=== PATIENT | male | born 1970 | race Caucasian/White ===

== ENCOUNTER 2020-06-17 07:54 | Outpatient (REF) | payer MEDICARE, MEDICAID, SELFPAY ==
[2020-06-17 08:57] LABS: MANUAL DIFF FLAG NO
[2020-06-17 09:00] LABS: Basophils Absolute Auto 0.1 X10*3/uL (0.0-0.2); Basophils Percent Auto 0.7 % (0-2); Eosinophils Absolute Auto 0.1 X10*3/uL (0.0-0.4); Eosinophils Percent Auto 1.4 % (0-4); Hematocrit 45.6 % (42-52); Imm Gran Abs Auto 0.03 X10*3/uL (0.00-0.03); Imm Gran Pct Auto 0.4 % (0.0-0.4); Lymphocytes Percent Auto 28.3 % (20-40); Mean Corpuscular HGB Conc 32.9 g/dl (31.0-36.0); Mean Corpuscular Hemoglobin 27.6 pg (27.0-33.0); Mean Platelet Volume 9.9 fL (9.4-12.4); Monocytes Absolute Auto 0.7 X10*3/uL (0.1-1.2); Monocytes Percent Auto 9.2 % (2-11); Neutrophils Absolute Auto 4.3 X10*3/uL (2.0-8.3); Platelet Count 295 X10*3/uL (160-400); Red Blood Count 5.43 X10*6/uL (4.60-5.80); Red Cell Distribution Width 12.8 % (11.0-16.0); White Blood Count 7.1 X10*3/uL (4.8-10.8)
[2020-06-17 09:36] LABS: Anion Gap 13 (12-20); Blood Urea Nitrogen 18 mg/dL (9-16); Calcium 9.4 mg/dL (8.4-10.2); Carbon Dioxide 28 mmol/L (22-29); Chloride 101 mmol/L (96-108); Estimated Glomerular Filt Rate > 60; Glucose Random 95 mg/dL (60-115); Potassium 4.6 mmol/l (3.3-5.1); Sodium 137 mmol/L (135-145)
== END 2020-06-17 07:55 | disposition home or self-care (01) ==
LOC: HO.LAB 07:54
PROVIDERS: Visit Provider Internal Medicine
DX: R51.9 Headache, unspecified (principal)
CPT/HCPCS: 36415; 80048; 85025

== ENCOUNTER 2020-07-18 15:18 | Outpatient (REF) | payer MEDICARE, MEDICAID, SELFPAY ==
--- NOTE | 2020-07-18 15:22 | CT_ITS ---
EXAMINATION: CT HEAD WITHOUT CONTRAST CLINICAL INFORMATION: Headache COMPARISON: Previous exam April 2008 TECHNIQUE: Contiguous axial imaging was performed from the skull base to vertex without intravenous administration of contrast. This CT examination was performed using dose optimization techniques as appropriate, variously including the following: *Automated exposure control *Adjustment of mA and/or kV according to patient size (this includes techniques or standardized protocols for targeted exams where dose is matched to indication/reason for exam; i.e. extremities or head) *Use of iterative reconstruction technique DLP: 685 mGy-cm FINDINGS: There is no evidence of acute intracranial hemorrhage or territorial infarction. No abnormal mass effect or midline shift is seen. Nguyen to white matter differentiation is well preserved. No extra-axial fluid collections are identified. The ventricles are normal in size. There is no abnormal attenuation within the brain parenchyma. There is complete opacification of the visualized right maxillary sinus. There is partial opacification of the sphenoid sinus. The medial wall right maxillary sinus appears thin or absent questionable for postsurgical change. The remainder the paranasal sinuses, mastoid air cells and middle ears are clear. Bony structures are otherwise unremarkable. CT/CT head/brain wo con IMPRESSION: No acute intracranial pathology. Right maxillary and sphenoid sinus disease.
== END 2020-07-18 15:19 | disposition home or self-care (01) ==
LOC: HO.CT 15:18
PROVIDERS: Visit Provider Internal Medicine
DX: R51.9 Headache, unspecified (principal)
CPT/HCPCS: 70450

== ENCOUNTER 2020-10-21 09:16 | Day surgery (SDC) | payer MEDICARE, MEDICAID, SELFPAY ==
[2020-10-17 13:50] VITALS: BMI 23.8
--- NOTE | 2020-10-19 14:04 | P.CONAN_ITS ---
HPI - Anesthesia Eval Consult details Narrative: 50yo M for Upper Endoscopy PMFSH Active Problems Active Problems: All Active Problems (Updated 10/17/20 @ 13:42 by Selma Pike) Headache (Acute) Past Medical History Medical History (Updated 10/22/20 @ 00:00 by Marie Zendejas) Depression GERD (gastroesophageal reflux disease) History of bacterial enteritis Family History Family History (Updated 06/07/20 @ 11:20 by Melva Mayers ON LICENSE OF [facility]) Father No problems noted. Mother Cancer Brother Bone cancer Surgical History Surgical History (Updated 10/17/20 @ 13:42 by Selma Pike) History of ankle surgery History of back surgery History of trauma Social History Social History (Updated 10/17/20 @ 13:43 by Selma Pike) Smoking Status: Never smoker Substance Use Type: Marijuana Advance Directives: No Advance Directives Information Provided: No Meds Allergies Allergy/AdvReac Type Severity Reaction Status Date / Time tomato [Tomato] Allergy Mild HIVES Verified 10/24/20 07:56 vancomycin [Vancomycin] Allergy Mild TURNED Verified 10/24/20 07:56 RED/ITCHING Penicillins AdvReac Unknown UNKNOWN Verified 10/24/20 07:56 Home Medications Medication Instructions Recorded Confirmed Last Taken Type amitriptyline 1 tab PO BEDTIME 10/17/20 10/17/20 Unknown History omeprazole 1 cap PO DAILY 10/17/20 10/17/20 Unknown History Exam Exam Date and Time: October 19, 2020 1404 Height,Weight and Vital Signs: Height 5 ft 4 in Weight 63.049 kg Assessment and Plan Assessment Anesthesia Assessment: Chart Reviewed
[2020-10-21 10:29] VITALS: BP 113/81; PULSE 69; RESP 20; TEMP 36.8; O2SAT 99
[2020-10-21] MEDS: Lactated Ringers 1,000 ML 100 ML IVCONT (10:43)
--- NOTE | 2020-10-21 10:48 | MHC.SHP ---
Pre-Procedural Eval Section A The patient is an INPATIENT: No Changes since office visit: No Cold of Flu in the past 2 weeks, No New Medical Problems, No Changes in Medication and No Patient answered all questions The History & Physical has been completed within 30 days and I have reviewed it.: Yes Section B Chief Complaint: reflux Allergies: Allergies Allergy/AdvReac Type Severity Reaction Status Date / Time tomato [Tomato] Allergy Mild HIVES Verified 08/11/20 14:36 vancomycin [Vancomycin] Allergy Mild TURNED Verified 08/11/20 14:36 RED/ITCHING Penicillins AdvReac Unknown UNKNOWN Verified 08/11/20 14:36 Plan I have reviewed the history and physical and performed a pertinent physical examination on my patient. No changes have occurred unless specified.
--- NOTE | 2020-10-21 11:08 | PM.OP ---
Brief Operative Note Date of Service: 10/21/20 Pre-op diagnosis: gerd Post-op diagnosis: same (hiatsl hernia) Procedure: egd Surgeon: Jurgen Thibodeaux Anesthesia: MAC Estimated blood loss (mL): 2 Pathology: other (bxs antrum and egj) Condition: stable Disposition: PACU
[2020-10-21 11:12] VITALS: BP 96/35; PULSE 72; RESP 18; TEMP 36.6; O2SAT 97
[2020-10-21 11:27] VITALS: BP 108/46; PULSE 73; RESP 16; TEMP 36.6; O2SAT 97
[2020-10-21 11:42] VITALS: BP 145/73; PULSE 73; RESP 16; TEMP 36.6; O2SAT 97
--- NOTE | 2020-10-21 20:59 | OP_ITS ---
SURGEON: Jurgen Thibodeaux MD INDICATIONS: Gastroesophageal reflux disease. PREOPERATIVE DIAGNOSIS: POSTOPERATIVE DIAGNOSIS: PROCEDURE PERFORMED: Upper endoscopy with biopsy. ESTIMATED BLOOD LOSS: COMPLICATIONS: ANESTHESIA: ASSISTANTS: SPECIMENS: MEDICATIONS: Monitored anesthesia care. DESCRIPTION OF PROCEDURE: The history and physical performed. The risks and benefits of the procedure were explained to the patient. Informed consent was obtained. The patient was placed in the left lateral decubitus position. The Olympus video gastroscope was introduced into the esophagus, stomach, and duodenum. Examination was performed. The scope was removed. He tolerated the procedure well and was returned to recovery area in stable condition. FINDINGS: Esophagus: The esophagus showed an irregular EG junction. There was a small sliding hiatal hernia. There was no esophagitis. Biopsies were obtained from the EG junction. Stomach: The stomach was normal. Antral biopsies were obtained. Duodenum: The bulb and second portion were normal. IMPRESSION: Gastroesophageal reflux disease, hiatal hernia. RECOMMENDATION: Follow up the biopsy results. MD JONNY Regalado/MODL / [id number]
== END 2020-10-21 13:25 ==
LOC: HO.SSS 09:16
PROVIDERS: PCP Internal Medicine; Visit Provider Internal Medicine Gastroenterology
PROC: 0DJ08ZZ Inspection of Upper Intestinal Tract, Via Natural or Artificial Opening Endoscopic (ICD-10-PCS; CPT 43235; principal; 2020-10-21 11:00)
DX: K21.9 Gastro-esophageal reflux disease without esophagitis (principal); K44.9 Diaphragmatic hernia without obstruction or gangrene; Z86.19 Personal history of other infectious and parasitic diseases; F12.90 Cannabis use, unspecified, uncomplicated; Z79.899 Other long term (current) drug therapy; Z88.0 Allergy status to penicillin; Z88.1 Allergy status to other antibiotic agents
CPT/HCPCS: 43239; 88305; 88342

== ENCOUNTER 2020-10-21 12:07 | Emergency (ER) | payer MEDICARE, MEDICAID, SELFPAY ==
[2020-10-21 12:13] VITALS: BP 122/79; PULSE 77; RESP 18; TEMP 36.2; O2SAT 97; BMI 24.0
--- NOTE | 2020-10-21 13:37 | ED_ITS ---
HPI - Extremity Problem General Chief complaint: Extremity Problem Stated complaint: pain on iv site from pacu Time Seen by Provider: 10/21/20 13:17 History of Present Illness HPI Narrative: Patient complains of right hand pain as well as numbness and tingling in the index and middle finger after a failed IV attempts and the back of the hand in the back of the wrist on the radial side. It the patient felt sharp pain when the needle was inserted and blood was squirting through the nee dle and he felt paresthesias tingling and numbness in the 2nd and 3rd fingers of his right hand the needle was removed This happened in the endoscopy suite and they brought the patient down for further evaluation Related Data Home Medications Medication Instructions Recorded Confirmed amitriptyline 1 tab PO BEDTIME 10/17/20 10/17/20 omeprazole 1 cap PO DAILY 10/17/20 10/17/20 Previous Rx's Medication Instructions Recorded naproxen 500 mg tablet 500 mg PO BID PRN #60 tab 06/07/20 oxycodone-acetaminophen [Percocet] 1 tab PO Q6H PRN #7 tab 10/21/20 Allergies Allergy/AdvReac Type Severity Reaction Status Date / Time tomato [Tomato] Allergy Mild HIVES Verified 08/11/20 14:36 vancomycin [Vancomycin] Allergy Mild TURNED Verified 08/11/20 14:36 RED/ITCHING Penicillins AdvReac Unknown UNKNOWN Verified 08/11/20 14:36 Review of Systems Review of Systems: Positive for right hand pain some numbness and tingling Negative for weakness, bleeding, dizziness, fainting, denies color change PMFSH Past Medical History Source: nursing notes reviewed Medical History (Updated 10/21/20 @ 14:16 by SIMON Archuleta) Depression GERD (gastroesophageal reflux disease) History of bacterial enteritis Surgical History (Updated 10/17/20 @ 13:42 by Selma Pike) History of ankle surgery History of back surgery History of trauma Family History Family History (Updated 06/07/20 @ 11:20 by PONCHO Atwood) Father No problems noted. Mother Cancer Brother Bone cancer Social History Social History (Updated 10/17/20 @ 13:43 by Selma Pike) Smoking Status: Never smoker Substance Use Type: Marijuana Advance Directives: No Advance Directives Information Provided: No Physical Exam Vital Signs: Vital Signs: Last Vital Signs Temp 97.2 F 10/21/20 12:13 Pulse 77 10/21/20 12:13 Resp 18 10/21/20 12:13 BP 122/79 10/21/20 12:13 Pulse Ox 97 10/21/20 12:13 Body Mass Index 24.0 General appearance is no acute distress, mildly uncomfortable, common cooperative Head normocephalic atraumatic The neck is supple Respiratory no distress Extremities the right hand dorsal aspect of the hand at the site of the IV attempt which was in the snuffbox area of the wrist there is no redness or swelling, there is no bleeding there is tenderness, there is full range of motion in the fingers distal, cap refill is normal, radial pulse is normal, and sensation in all fingers distal was intact Neuro no focal deficit Course Course Course Narrative: Patient was observed for half an hour and pain and numb feeling and tingling were very improved without any treatment, repeat exam of his hand shows no swelling no color change colors the same in both hands there was no pallor or redness, sensation was fully intact and all movement was fully intact no evidence of tendon impairment or deficit It is possible the median nerve was nicked causing paresthesias tingling and a feeling of numbness and patient will be referred to Hand doctor if symptoms do not get better on their own and is prescribed analgesics, at this time the hand is vascular intact and sensation and motor intact Discharge Plan Discharge Clinical Impression: Neuropathy, median nerve Qualifiers: Laterality: right Qualified Code(s): G56.11 - Other lesions of median nerve, right upper limb Patient Disposition: Home, Self-Care Additional Instructions: I believe the needle touched your median nerve which causes the symptoms, this should resolve on its own in a few days and sensation and pain should be very improved If needed follow with hand doctor For any worse condition, worse pain and swelling, change in color in the hand, any worsening symptoms or concerns return to ER any time Prescriptions: New oxycodone-acetaminophen [Percocet] 5-325 mg tablet 1 tab PO Q6H PRN (Reason: pain) Qty: 7 RF: 0 No Action amitriptyline 25 mg tablet 1 tab PO BEDTIME RF: 0 omeprazole 20 mg capsule,delayed release(DR/EC) 1 cap PO DAILY RF: 0 naproxen [Naprosyn] 500 mg tablet 500 mg PO BID PRN (Reason: pain) Qty: 60 RF: 0 Referrals: Ellen Overton MD [Physician] - 2 days (Patient had IV insertion injury to the right hand with numbness and pain in the hand in median nerve distribution for re-evaluation of possible nerve injury) Interventions: ED Discharge Assessment Last Done: 10/21/20 14:22 Discharge Date/Time: 10/21/20 14:23
== END 2020-10-21 14:23 | disposition home or self-care (01) ==
PROVIDERS: Emergency Provider Emergency Medicine Emergency Medical Services; PCP Internal Medicine
DX: G56.11 Other lesions of median nerve, right upper limb (principal); M79.641 Pain in right hand
CPT/HCPCS: 99283

== ENCOUNTER 2022-05-14 13:17 | Outpatient (REF) | payer MEDICARE, MEDICAID, SELFPAY ==
--- NOTE | ~2022-05-14 | XR_ITS ---
EXAMINATION: XR LUMBAR SPINE XR SACROILIAC JOINTS CLINICAL INFORMATION: Other intervertebral disc degeneration, lumbar region. Additional information: Pain in right shoulder, lower back and bilateral sacroiliac joints. COMPARISON: Radiographs dated 04/01/2020 and 05/16/2016. TECHNIQUE: Three views of the lumbosacral spine. Three views of the sacroiliac joints. FINDINGS: Mild left convex lumbar scoliosis is centered at L3. Vertebral body heights are normal. No fracture or spondylolisthesis. Small endplate osteophytes are evident in the lumbar spine with minimal loss of intervertebral disc height at L3-L4 and L4-L5. This arthropathy is notable on the right at L3-L4 and L4-L5 as well. There is transitional anatomy at the lumbosacral junction with a degenerated, hypertrophied articulation between the left L5 transverse process and the sacrum. This can be symptomatic. No acute soft tissue findings. No acute osseous findings in the sacroiliac joints. Sacroiliac joints appear relatively well preserved. Bone mineralization is normal. Hip joints are unremarkable. XR/XR lumbar spine 2-3V IMPRESSION: 1. Transitional anatomy at the lumbosacral junction with a degenerated, hypertrophied articulation between the left L5 transverse process and the sacrum. 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 2. Mild left convex lumbar scoliosis centered at L3. 3. Mild lumbar degenerative spondylosis at L3-L4 and L4-L5.
--- NOTE | ~2022-05-14 | XR_ITS ---
EXAMINATION: XR LUMBAR SPINE XR SACROILIAC JOINTS CLINICAL INFORMATION: Other intervertebral disc degeneration, lumbar region. Additional information: Pain in right shoulder, lower back and bilateral sacroiliac joints. COMPARISON: Radiographs dated 04/01/2020 and 05/16/2016. TECHNIQUE: Three views of the lumbosacral spine. Three views of the sacroiliac joints. FINDINGS: Mild left convex lumbar scoliosis is centered at L3. Vertebral body heights are normal. No fracture or spondylolisthesis. Small endplate osteophytes are evident in the lumbar spine with minimal loss of intervertebral disc height at L3-L4 and L4-L5. This arthropathy is notable on the right at L3-L4 and L4-L5 as well. There is transitional anatomy at the lumbosacral junction with a degenerated, hypertrophied articulation between the left L5 transverse process and the sacrum. This can be symptomatic. No acute soft tissue findings. No acute osseous findings in the sacroiliac joints. Sacroiliac joints appear relatively well preserved. Bone mineralization is normal. Hip joints are unremarkable. XR/XR sacroiliac joint min 3V IMPRESSION: 1. Transitional anatomy at the lumbosacral junction with a degenerated, hypertrophied articulation between the left L5 transverse process and the sacrum. 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 2. Mild left convex lumbar scoliosis centered at L3. 3. Mild lumbar degenerative spondylosis at L3-L4 and L4-L5.
--- NOTE | ~2022-05-14 | XR_ITS ---
EXAMINATION: XR SHOULDER, RIGHT CLINICAL INFORMATION: Right shoulder pain. COMPARISON: None TECHNIQUE: AP external rotation, Grashey, scapular Y, and axillary views of the right shoulder. FINDINGS: The bones and soft tissues are normal. No fracture. Glenohumeral and acromioclavicular alignment is anatomic with normal joint space. No abnormal soft tissue calcifications. XR/XR shoulder RT min 2V IMPRESSION: Normal right shoulder.
== END 2022-05-14 13:18 | disposition home or self-care (01) ==
LOC: HO.XRAY 13:17
PROVIDERS: PCP Internal Medicine; Visit Provider Internal Medicine
DX: M25.511 Pain in right shoulder (principal); M51.36 Other intervertebral disc degeneration, lumbar region
CPT/HCPCS: 72100; 72202; 73030

== ENCOUNTER → 2022-06-18 13:11 | Outpatient (BNVA) | payer MEDICARE, MEDICAID, SELFPAY | PROVIDERS: PCP Internal Medicine; Visit Provider Internal Medicine | DX: M51.36 Other intervertebral disc degeneration, lumbar region (principal); Q76.49 Other congenital malformations of spine, not associated with scoliosis; M54.16 Radiculopathy, lumbar region | CPT/HCPCS: 99202 ==

== ENCOUNTER 2023-05-06 14:06 | Outpatient (AMB) | payer MEDICARE, MEDICAID, SELFPAY ==
--- NOTE | 2023-05-06 14:35 | A.OFFVIS_ITS ---
Intake Vital Signs 05/06/23 14:41 Height 5 ft 4 in Weight 147 lb 4 oz BMI 25.3 BP 141/96 H Blood Pressure Location Rt brachial Position Sitting Pulse 84 Pulse Source Pulse Oximeter Pulse Oximetry (%) 97 Oxygen Delivery Method Room Air Intake Visit Reasons: Increasing Pain Allergies tomato [Tomato] Allergy (Mild, Verified 05/06/23 14:42) HIVES vancomycin [Vancomycin] Allergy (Mild, Verified 05/06/23 14:42) TURNED RED/ITCHING Penicillins Adverse Reaction (Unknown, Verified 05/06/23 14:42) UNKNOWN HPI Increasing Pain HPI Details 53-year-old male who presents today to t he clinic for a follow-up of increasing low back pain radiating down to the right lower extremities. The patient?s last visit was on 06/18/22. He has not received any call to schedule his Left L5 TP-iliac articulation corticosteroid infiltration in concert with L5-S1 MIRANDA. The patient reports low back pain radiating down from the buttocks to the thighs and knees to his foot. He states that his right side is worse than his left side. He has been walking and climbing stairs. His pain is worse in the morning, and he has to wait before coming out of bed. The patient has trigger fingers and recently received cortisone injections. 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 [facility] Medical History Depression GERD (gastroesophageal reflux disease) History of bacterial enteritis Surgical History History of ankle surgery History of back surgery History of colonoscopy History of trauma Family History Father No problems noted. Mother Cancer Brother Bone cancer Social History Housing: Apartment Alcohol intake: former Patient Tobacco Use Status: Former Tobacco user Second Hand Smoke Exposure: Yes Substance Use Type: Marijuana service: No Current occupational status: disabled Cognitive needs: No Hearing needs: No Vision needs: Yes (reading glasses) Review of Systems Const All systems reviewed & are unremarkable except as noted in HPI and below Physical Exam Vital Signs: Last Vital Signs Pulse 84 05/06/23 14:41 BP 141/96 H 05/06/23 14:41 Pulse Ox 97 05/06/23 14:41 Oxygen Delivery Method Room Air 05/06/23 14:41 BMI result Body Mass Index 25.3 General: Appears afebrile. Alert and oriented. Mood and affect appropriate. Follows and participates in conversation appropriately. Respiratory effort is unlabored. Able to transition from sit to stand unassisted. Ambulates with bilaterally normal heel strike and toe off. Lumbar extension and facet loading reproduces pain. Straight leg raise is positive on right side. Results Reviewed Results Reviewed: No imaging is available for review. Assessment & Plan Assessment & Plan Plan Will schedule him for bilateral L3-4, L4-5 intra-articular facet injections for his back pain, and then after one month, we will schedule him for a left L4-5 right parasagittal interlaminar MIRANDA for leg pain. Discussed the risks and benefits of the procedure with the patient in detail. All questions were answered. The patient is on board with the plan. Justification for interventional therapy: ? Patient with average pain > 6/10 ? Patient has exhausted conservative therapy ? Patient unable to tolerate physical therapy due to pain. ? Previous injection provided >50% relief x > [address] Iverson by Aristides López, certified court/medical interpreter, on 05/06/2023. I, Dr. Iverson, have personally reviewed and agree with the information entered by the scribe. Coding
[2023-05-06 14:41] VITALS: BP 141/96; PULSE 84; O2SAT 97; BMI 25.3
[2023-05-15 09:52] VITALS: BMI 25.3
--- NOTE | 2023-05-15 09:52 | MHC.OFFVIS ---
Intake Vital Signs 05/06/23 14:41 05/15/23 09:52 Height 5 ft 4 in Weight 147 lb 4 oz BMI 25.3 25.3 BP 141/96 H Blood Pressure Location Rt brachial Position Sitting Pulse 84 Pulse Source Pulse Oximeter Pulse Oximetry (%) 97 Oxygen Delivery Method Room Air Intake Visit Reasons: Increasing Pain Allergies tomato [Tomato] Allergy (Mild, Verified 05/06/23 14:42) HIVES vancomycin [Vancomycin] Allergy (Mild, Verified 05/06/23 14:42) TURNED RED/ITCHING Penicillins Adverse Reaction (Unknown, Verified 05/06/23 14:42) UNKNOWN HPI Increasing Pain HPI Details 53-year-old male here for increasing low back pain. He states that the pain is on both sides. It also radiates down his right lower extremity. It is debilitating and interfering with his activities of daily living. He would like to proceed with interventional therapy since conservative management has not been helpful. An VADIM questionnaire was administered to the patient, which revealed a disability score of 38 indicating severe disability. REPLACED BY [facility] Medical History Depression GERD (gastroesophageal reflux disease) History of bacterial enteritis Surgical History History of ankle surgery History of back surgery History of colonoscopy History of trauma Family History Father No problems noted. Mother Cancer Brother Bone cancer Social History Housing: Apartment Alcohol intake: former Patient Tobacco Use Status: Former Tobacco user Second Hand Smoke Exposure: Yes Substance Use Type: Marijuana service: No Current occupational status: disabled Cognitive needs: No Hearing needs: No Vision needs: Yes (reading glasses) Physical Exam Vital Signs: Last Vital Signs Pulse 84 05/06/23 14:41 BP 141/96 H 05/06/23 14:41 Pulse Ox 97 05/06/23 14:41 Oxygen Delivery Method Room Air 05/06/23 14:41 BMI result Body Mass Index 25.3 On exam today: Appears afebrile. Alert and oriented. Mood and affect appropriate. Follows and participates in conversation appropriately. Respiratory effort is unlabored. Able to transition from sit to stand unassisted. Ambulates with bilaterally normal heel strike and toe off. Able to stand and walk on toes and heels. Lumbar extension is limited in facet loading reproduces pain. Assessment & Plan Assessment & Plan (1) Lumbar spondylosis: Code(s): M47.816 - Spondylosis without myelopathy or radiculopathy, lumbar region (2) Lumbar radiculopathy: Code(s): M54.16 - Radiculopathy, lumbar region Plan: Will plan for lumbar facet intra-articular steroid injections for his axial low back pain secondary to lumbar spondylosis with facet hypertrophy. If this is not helpful in relieving his lower extremity symptoms, we will proceed with a right parasagittal interlaminar L4-5 epidural steroid injection. Discussed but interventions with the patient. All questions were answered; patient is amenable to proceed with the plan. Coding Level of Care Code Est Pt Level 4 (48941) Diagnoses Lumbar spondylosis M47.816 Lumbar radiculopathy M54.16
== END 2023-05-06 15:05 | disposition home or self-care (01) ==
PROVIDERS: PCP Internal Medicine; Visit Provider Internal Medicine
DX: M47.816 Spondylosis without myelopathy or radiculopathy, lumbar region (principal); M54.16 Radiculopathy, lumbar region
CPT/HCPCS: 99214

== ENCOUNTER → 2023-05-06 14:06 | Outpatient (BNVA) | payer MEDICARE, MEDICAID, SELFPAY | PROVIDERS: PCP Internal Medicine; Visit Provider Anesthesiology | DX: M47.26 Other spondylosis with radiculopathy, lumbar region (principal) | CPT/HCPCS: 99212 ==

== ENCOUNTER 2023-07-12 08:41 | Outpatient (AMB) | payer MEDICARE, MEDICAID, SELFPAY ==
--- NOTE | 2023-07-12 08:42 | MHC.OFFVIS ---
Intake Vital Signs 07/12/23 08:43 Height 5 ft 4 in Weight 147 lb BMI 25.2 BP 118/78 Blood Pressure Location Lt brachial Position Sitting Respiration 12 Pulse 76 Pulse Source Pulse Oximeter Pulse Oximetry (%) 98 Oxygen Delivery Method Room Air Intake Visit Reasons: Discussion about Injection Denial/confirmed Allergies tomato [Tomato] Allergy (Mild, Verified 07/12/23 08:44) HIVES vancomycin [Vancomycin] Allergy (Mild, Verified 07/12/23 08:44) TURNED RED/ITCHING Penicillins Adverse Reaction (Unknown, Verified 07/12/23 08:44) UNKNOWN HPI Discussion about Injection Denial/confirmed HPI Details 53-year-old male who presents today to the office for a follow up. ? The prior authorization for bilateral L3-4 and L4-L5 intraarticular facet injections was denied by his insurance. He reports severe back and hip pain that is primarily axial in nature and worse on the left side. The pain affects his daily lifestyle. The patient had a fall off the roof in 2006. This pain has been going on for the past 15 years, progressively worsening over the past four to five years. His pain score is described as 8?10/10 in intensity. He denies weakness in his legs are buckling of his knees. He has already tried and failed oral medications. He has tried Percocet, which was then stopped without any improvement in his function. He was going to [facility] for physical therapy and interventional therapy, which provided him with some temporary relief. An VADIM questionnaire was administered to the patient, which revealed a disability score of 38, indicating severe disability. 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 He has not undergone intraarticular facet injections in the past. [facility] Medical History Depression GERD (gastroesophageal reflux disease) History of bacterial enteritis Surgical History History of ankle surgery History of back surgery History of colonoscopy History of trauma Family History Father No problems noted. Mother Cancer Brother Bone cancer Social History Housing: Apartment Alcohol intake: former Patient Tobacco Use Status: Former Tobacco user Second Hand Smoke Exposure: Yes Substance Use Type: Marijuana service: No Current occupational status: disabled Cognitive needs: No Hearing needs: No Vision needs: Yes (reading glasses) Review of Systems Const All systems reviewed & are unremarkable except as noted in HPI and below Physical Exam Vital Signs: Last Vital Signs Pulse 76 07/12/23 08:43 Resp 12 07/12/23 08:43 BP 118/78 07/12/23 08:43 Pulse Ox 98 07/12/23 08:43 Oxygen Delivery Method Room Air 07/12/23 08:43 BMI result Body Mass Index 25.2 General: Appears afebrile. Alert and oriented. Mood and affect appropriate. Follows and participates in conversation appropriately. Respiratory effort is unlabored. Able to transition from sit to stand unassisted. Ambulates with bilaterally normal heel strike and toe off. The pain is primarily axial on exam. There is tenderness to palpation overlying the left L5 transverse process articulation region with the iliac bone. Lumbar extension is severely limited. Lumbar extension and facet loading both reproduce axial low back pain. He is able to stand on his toes and heels. Results Reviewed Results Reviewed: No imaging is available for review. 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 He has previously exhausted oral medications including Percocet, physical therapy and home exercise program. He continues to have debilitating symptoms rated 8 to 10/10 in intensity. His physical exam is consistent with facet mediated axial low back pain. Unfortunately our request for prior authorization was denied. We will submit a new request to the insurance company for a bilateral L3-4 and L4-5 intraarticular facet injection. Will plan to do a trigger point injection to the left L5 transverse process articulation with the iliac crest At the same time. We will keep the patient updated. Once it is approved, we will schedule the aforementioned procedures. Scribed for Dr. Iverson by Aristides López medical research scientist, on 07/12/2023. IDr. Iverson, have personally reviewed and agree with the information entered by the scribe. Coding Level of Care Code Est Pt Level 4 (37979) Diagnoses Lumbar spondylosis M47.816 Bertolotti's syndrome Q76.49
[2023-07-12 08:43] VITALS: BP 118/78; PULSE 76; RESP 12; O2SAT 98; BMI 25.2
== END 2023-07-12 09:04 | disposition home or self-care (01) ==
PROVIDERS: PCP Internal Medicine; Visit Provider Internal Medicine
DX: M47.816 Spondylosis without myelopathy or radiculopathy, lumbar region (principal); Q76.49 Other congenital malformations of spine, not associated with scoliosis
CPT/HCPCS: 99214

== ENCOUNTER → 2023-07-12 08:41 | Outpatient (BNVA) | payer MEDICARE, MEDICAID, SELFPAY | PROVIDERS: PCP Internal Medicine; Visit Provider Internal Medicine | DX: M47.816 Spondylosis without myelopathy or radiculopathy, lumbar region (principal); Q76.49 Other congenital malformations of spine, not associated with scoliosis | CPT/HCPCS: 99212 ==

== ENCOUNTER 2023-09-12 06:11 | Outpatient (REF) | payer MEDICARE, MEDICAID, SELFPAY ==
--- NOTE | ~2023-09-12 | FL_ITS ---
EXAMINATION: XR FLUOROSCOPY WITH IMAGES CLINICAL INFORMATION: Spondylosis without myelopathy or radiculopathy. COMPARISON: Lumbar spine radiographs dated 05/14/2022. TECHNIQUE: Fluoroscopy Supervised By: Dr. Sukhdev Iverson. Fluoroscopy Time: 23.4 seconds. Cumulative Dose: 5.92 mGy. Images: 4. FINDINGS: The submitted images show an injection needle and injected contrast at the level of the left L4-L5 and L5-S1 and the right L3-L4, L4-L5 and L5-S1 neural foramina. FL/FL guidance in treatment room IMPRESSION: Intraoperative fluoroscopic guidance is provided during bilateral lumbosacral pain injections. Please see the patient's Operative Report for full procedural details.
== END 2023-09-12 06:12 | disposition home or self-care (01) ==
LOC: CF 06:11
PROVIDERS: Visit Provider Internal Medicine
DX: M47.816 Spondylosis without myelopathy or radiculopathy, lumbar region (principal); Q76.49 Other congenital malformations of spine, not associated with scoliosis
CPT/HCPCS: 64493; 64494; J2795; Q9967

== ENCOUNTER 2023-09-12 13:42 | Outpatient (AMB) | payer MEDICARE, MEDICAID, SELFPAY ==
[2023-09-12 13:48] VITALS: BP 110/70; PULSE 82; RESP 12; O2SAT 98
--- NOTE | 2023-09-12 13:48 | A.OFFVIS_ITS ---
Intake Vital Signs 09/12/23 13:48 09/12/23 14:37 BP 110/70 140/72 H Blood Pressure Location Rt brachial Lt brachial Position Sitting Sitting Respiration 12 12 Pulse 82 79 Pulse Source Pulse Oximeter Pulse Oximeter Pulse Oximetry (%) 98 98 Oxygen Delivery Method Room Air Room Air Intake Visit Reasons: Yosef Dx L3-L4-DR-L5 MBB Allergies tomato [Tomato] Allergy (Mild, Verified 09/12/23 13:48) HIVES vancomycin [Vancomycin] Allergy (Mild, Verified 09/12/23 13:48) TURNED RED/ITCHING Penicillins Adverse Reaction (Unknown, Verified 09/12/23 13:48) UNKNOWN HPI Yosef Dx L3-L4-DR-L5 MBB HPI Details Patient presents for scheduled procedure. Denies any recent cough, cold, infection, fever or other significant changes in medical history since last office visit. [facility] Medical History Depression GERD (gastroesophageal reflux disease) History of bacterial enteritis Surgical History History of ankle surgery History of back surgery History of colonoscopy History of trauma Family History Father No problems noted. Mother Cancer Brother Bone cancer Social History Housing: Apartment Alcohol intake: former Patient Tobacco Use Status: Former Tobacco user Second Hand Smoke Exposure: Yes Substance Use Type: Marijuana service: No Current occupational status: disabled Cognitive needs: No Hearing needs: No Vision needs: Yes (reading glasses) Physical Exam Vital Signs: Last Vital Signs Pulse 79 09/12/23 14:37 Resp 12 09/12/23 14:37 BP 140/72 H 09/12/23 14:37 Pulse Ox 98 09/12/23 14:37 Oxygen Delivery Method Room Air 09/12/23 14:37 Office Procedures Lumbar/Sacral Facet Inj Details: Lumbar Medial Branch Block, Bilateral L3, L4 medial branches and L5 Dorsal Ramus (2 levels, 3 nerves) After obtaining written consent, pre-procedure blood pressure and pulse were recorded and are in the nursing record for review. The patient was placed in a prone position. The respective lumbosacral area was prepped with chloraprep and draped in sterile fashion. The skin over the target medial branch nerves was anesthetized with 0.5% lidocaine. A 22 gauge 3.5 inch needle was inserted into the target medial branch nerve under fluoroscopic guidance. No paresthesias were elicited with needle placement and aspiration was negative for blood and CSF. Next, 0.2cc of omnipaque 180 was injected to verify positioning. Next 0.5 ml 0.5% ropivicaine was injected (0.5 cc total per level). The identical procedure was performed at the remaining levels. The skin was cleansed and a sterile bandage was applied. Following the procedure the patient's vital signs were stable. The patient tolerated the procedure well and no complications were encountered. Following the procedure the patient's vital signs were stable. The patient was discharged home in good condition with post-procedural instructions. Time Out: Immediately prior to the procedure, the following was verbally confirmed that there is a signed consent form and that the correct patient, planned procedure, site and side are consistent with documentation and that necessary equipment and/or blood products are available prior to the start of the case. Complications: none EBL: <5 cc 09864 - second level, with Fluoroscopy (bilateral) Procedure code (CPT) selection complete Assessment & Plan Assessment & Plan (1) Bertolotti's syndrome: Code(s): Q76.49 - Other congenital malformations of spine, not associated with scoliosis (2) Lumbar spondylosis: Code(s): M47.816 - Spondylosis without myelopathy or radiculopathy, lumbar region Plan Patient is status post bilateral diagnostic L3, L4, L5 MBBs. Patient tolerated procedure well and was discharged home in stable condition with discharge instructions. All questions were answered. We will follow-up via telephone or in clinic to assess response to therapy. A follow-up appointment was made during today's visit. Coding Level of Care Code Procedure Only Diagnoses Bertolotti's syndrome Q76.49 Lumbar spondylosis M47.816 CPT Codes Facet Injection-Lumbar/Sacral - CPT: 79689 - second level, with Fluoroscopy ([id number])
[2023-09-12 14:37] VITALS: BP 140/72; PULSE 79; RESP 12; O2SAT 98
== END 2023-09-12 14:31 | disposition home or self-care (01) ==
LOC: HO.PMCPRC 13:42
PROVIDERS: PCP Internal Medicine; Visit Provider Internal Medicine
DX: M47.816 Spondylosis without myelopathy or radiculopathy, lumbar region (principal); Q76.49 Other congenital malformations of spine, not associated with scoliosis
CPT/HCPCS: 64493; 64494

== ENCOUNTER 2023-09-16 10:31 | Outpatient (AMB) | payer MEDICARE, MEDICAID, SELFPAY ==
[2023-09-16 10:51] VITALS: BP 123/76; PULSE 83; RESP 12; O2SAT 96; BMI 25.7
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
== END 2023-09-16 11:32 | disposition home or self-care (01) ==
PROVIDERS: PCP Internal Medicine; Visit Provider Internal Medicine
DX: M25.551 Pain in right hip (principal); M25.552 Pain in left hip; M54.59 Other low back pain
CPT/HCPCS: 99214

== ENCOUNTER 2023-09-16 10:31 | Outpatient (REF) | payer MEDICARE, MEDICAID, SELFPAY ==
--- NOTE | ~2023-09-16 | XR_ITS ---
EXAMINATION: XR BILATERAL HIPS WITH AP PELVIS CLINICAL INFORMATION: Chronic bilateral hip pain after falling off and 2006 COMPARISON: 03/15/2014 TECHNIQUE: AP view of the pelvis and single views of each hip were obtained. FINDINGS: No fracture or dislocation. Hip joints are symmetric without significant joint space narrowing. Visualized SI joints within normal limits. Left hemipelvic phlebolith. XR/XR hips IDANIA min 3V IMPRESSION: No acute bony pathology bilateral hips.
== END 2023-09-16 10:32 | disposition home or self-care (01) ==
LOC: HO.XRAY 10:31
PROVIDERS: PCP Internal Medicine; Visit Provider Internal Medicine
DX: M25.551 Pain in right hip (principal); M25.552 Pain in left hip
CPT/HCPCS: 73522; 99212

== ENCOUNTER 2023-09-20 10:05 | Outpatient (AMB) | payer MEDICARE, MEDICAID, SELFPAY ==
--- NOTE | 2023-09-20 10:12 | MHC.OFFVIS ---
Intake Vital Signs 09/20/23 10:13 Height 5 ft 4 in Weight 150 lb BMI 25.7 BP 140/82 H Blood Pressure Location Rt brachial Position Sitting Respiration 14 Pulse 65 Pulse Source Pulse Oximeter Pulse Oximetry (%) 99 Oxygen Delivery Method Room Air Intake Visit Reasons: Follow Up/X-Ray Results Allergies tomato [Tomato] Allergy (Mild, Verified 09/16/23 10:52) HIVES vancomycin [Vancomycin] Allergy (Mild, Verified 09/16/23 10:52) TURNED RED/ITCHING Penicillins Adverse Reaction (Unknown, Verified 09/16/23 10:52) UNKNOWN HPI Follow Up/X-Ray Results HPI Details 53-year-old male who presents today to the office for a follow-up review of x-ray. His x-ray result was unremarkable. He reports inguinal pain on the right side. He states that his pain is worse with movements or activities. He noticed popping sounds from his hip region. His daily activities are diminished due to pain. He tried physical therapy at [facility] a long time ago. His [facility] insurance is active. He is on disability and has Medicare. Past Procedures: 09/12/23: Lumbar Medial Branch Block, Bilateral L3, L4 medial branches and L5 Dorsal Ramus (2 levels, 3 nerves): 40% relief for two days. [facility] Medical History Depression GERD (gastroesophageal reflux disease) History of bacterial enteritis Surgical History History of ankle surgery History of back surgery History of colonoscopy History of trauma Family History Father No problems noted. Mother Cancer Brother Bone cancer Social History Housing: Apartment Alcohol intake: former Patient Tobacco Use Status: Former Tobacco user Second Hand Smoke Exposure: Yes Substance Use Type: Marijuana service: No Current occupational status: disabled Cognitive needs: No Hearing needs: No Vision needs: Yes (reading glasses) Review of Systems Const All systems reviewed & are unremarkable except as noted in HPI and below Physical Exam Vital Signs: Last Vital Signs Pulse 65 09/20/23 10:13 Resp 14 09/20/23 10:13 BP 140/82 H 09/20/23 10:13 Pulse Ox 99 09/20/23 10:13 Oxygen Delivery Method Room Air 09/20/23 10:13 BMI result Body Mass Index 25.7 General: Appears afebrile. Alert and oriented. Mood and affect appropriate. Follows and participates in conversation appropriately. Respiratory effort is unlabored. Able to transition from sit to stand unassisted. Ambulates with bilaterally normal heel strike and toe off. Results Reviewed Results Reviewed: 09/16/23: XR BILATERAL HIPS WITH AP PELVIS FINDINGS: No fracture or dislocation. Hip joints are symmetric without significant joint space narrowing. Visualized SI joints within normal limits. Left hemipelvic phlebolith. IMPRESSION: No acute bony pathology bilateral hips. Assessment & Plan Assessment & Plan (1) Bilateral hip pain: Code(s): M25.551 - Pain in right hip; M25.552 - Pain in left hip Plan We discussed trying cortisone injections as a possible treatment option for his hip and inguinal region pain. Will schedule him for a right hip intraarticular injection under US or fluoroscopy. Discussed the risks and benefits of the procedure with the patient in detail. All questions were answered. The patient is on board with the plan. We will proceed with the previously discussed PNS plan for his back pain. Justification for interventional therapy: ? Patient with average pain > 6/10 ? Patient has exhausted conservative therapy ? Patient unable to tolerate physical therapy due to pain Scribed for Dr. Iverson by Aristides López, medical claims examiner, on 09/20/2023. I, Dr. Iverson, have personally reviewed and agree with the information entered by the scribe. Coding Level of Care Code Est Pt Level 3 (92131) Diagnoses Bilateral hip pain M25.551; M25.552
[2023-09-20 10:13] VITALS: BP 140/82; PULSE 65; RESP 14; O2SAT 99; BMI 25.7
== END 2023-09-20 10:44 | disposition home or self-care (01) ==
PROVIDERS: PCP Internal Medicine; Visit Provider Internal Medicine
DX: M25.551 Pain in right hip (principal); M25.552 Pain in left hip
CPT/HCPCS: 99213

== ENCOUNTER → 2023-09-20 10:05 | Outpatient (BNVA) | payer MEDICARE, MEDICAID, SELFPAY | PROVIDERS: PCP Internal Medicine; Visit Provider Internal Medicine | DX: M25.551 Pain in right hip (principal); M25.552 Pain in left hip | CPT/HCPCS: 99212 ==

== ENCOUNTER 2023-10-10 06:04 | Outpatient (REF) | payer MEDICARE, MEDICAID, SELFPAY ==
--- NOTE | ~2023-10-10 | FL_ITS ---
EXAMINATION: XR FLUOROSCOPY WITH IMAGES CLINICAL INFORMATION: Pain in right hip COMPARISON: None available. TECHNIQUE: Fluoroscopy Supervised By: Yaron Hansen. Fluoroscopy Time: 0.3 minutes. Cumulative Dose: 4.20 mGy. DAP: 0.0472 Gycm2. Images: 2. FINDINGS: There are 2 digital images of right hip revealing needle positioned lateral to the right femoral neck with contrast opacifying the soft tissues and joint space. No gross bony abnormality seen. FL/FL guidance in treatment room IMPRESSION: Fluoroscopy was provided to referrer for right hip pain management.
== END 2023-10-10 06:05 | disposition home or self-care (01) ==
LOC: CF 06:04
PROVIDERS: Visit Provider Internal Medicine
DX: M25.551 Pain in right hip (principal); M25.552 Pain in left hip
CPT/HCPCS: 20610; J2795; J3301; Q9967

== ENCOUNTER 2023-10-10 11:07 | Outpatient (AMB) | payer MEDICARE, MEDICAID, SELFPAY ==
[2023-10-10 11:12] VITALS: BP 128/68; PULSE 72; RESP 12; O2SAT 96; BMI 25.4
--- NOTE | 2023-10-10 11:12 | A.OFFVIS_ITS ---
Intake Vital Signs 10/10/23 11:12 10/10/23 11:48 Height 5 ft 4 in 5 ft 4 in Weight 148 lb 148 lb BMI 25.4 25.4 BP 128/68 120/68 Blood Pressure Location Lt brachial Lt brachial Position Sitting Sitting Respiration 12 12 Pulse 72 94 Pulse Source Pulse Oximeter Pulse Oximeter Pulse Oximetry (%) 96 98 Oxygen Delivery Method Room Air Room Air Comment Pre-Op Post-OP Intake Visit Reasons: Right theraputic intraarticular hip inj Sap Bw Developer Required: No Accompanied by: Self / Same As Patient Allergies tomato [Tomato] Allergy (Mild, Verified 10/10/23 11:14) HIVES vancomycin [Vancomycin] Allergy (Mild, Verified 10/10/23 11:14) TURNED RED/ITCHING Penicillins Adverse Reaction (Unknown, Verified 10/10/23 11:14) UNKNOWN HPI Right theraputic intraarticular hip inj 2 HPI Details Patient presents for scheduled procedure. Denies any recent cough, cold, infection, fever or other significant changes in medical history since last office visit. [facility] Medical History Depression GERD (gastroesophageal reflux disease) History of bacterial enteritis Surgical History History of ankle surgery History of back surgery History of colonoscopy History of trauma Family History Father No problems noted. Mother Cancer Brother Bone cancer Social History Housing: Apartment Alcohol intake: former Patient Tobacco Use Status: Former Tobacco user Second Hand Smoke Exposure: Yes Substance Use Type: Marijuana service: No Current occupational status: disabled Cognitive needs: No Hearing needs: No Vision needs: Yes (reading glasses) Physical Exam Vital Signs: Last Vital Signs Pulse 94 10/10/23 11:48 Resp 12 10/10/23 11:48 BP 120/68 10/10/23 11:48 Pulse Ox 98 10/10/23 11:48 Oxygen Delivery Method Room Air 10/10/23 11:48 BMI result Body Mass Index 25.4 Office Procedures Joint Injection/Drain Joint Injection/Drain Details: Hip Intra-articular Injection, fluoroscopy guided, Right After informed written consent was obtained, the patient was placed in the lateral position. Pre-procedure oxygen saturation, heart rate, and blood pressure were recorded. The skin was prepped with Chloroprep, and draped in a sterile fashion. With the use of fluroscopy the hip joint was identified. With a 25-gauge 1.5 hypodermic needle 0.75% lidocaine was injected subcutaneously over the entry site. A 22-gauge 3.5 spinal needle was then advanced toward the junction of the joint capsule and femoral neck. Once in position, and after negative aspiration, 0.5mL of Omnipaque was injected outlining the joint capsule followed by injection of 40mg Kenalog mixed with 0.5% ropivacaine (3mL total). There was no evidence of paresthesias throughout needle placement. The stylet was replaced and then the needle was withdrawn. The patient tolerated the procedure well and there was no evidence of procedural complications. EBL: <1cc Coding 51276 - Large joint Procedure code (CPT) selection complete Assessment & Plan Assessment & Plan (1) Bilateral hip pain: Code(s): M25.551 - Pain in right hip; M25.552 - Pain in left hip Plan Patient is status post right hip intra-articular steroid injection. Patient tolerated procedure well and was discharged home in stable condition with discharge instructions. All questions were answered. We will follow-up via telephone or in clinic to assess response to therapy. A follow-up appointment was made during today's visit. Coding Level of Care Code Procedure Only Diagnoses Bilateral hip pain M25.551; M25.552 CPT Codes Coding - 42852 Large joint: 26945 - Large joint ([id number])
[2023-10-10 11:48] VITALS: BP 120/68; PULSE 94; RESP 12; O2SAT 98; BMI 25.4
== END 2023-10-10 11:46 | disposition home or self-care (01) ==
LOC: HO.PMCPRC 11:07
PROVIDERS: PCP Internal Medicine; Referring Provider Internal Medicine; Visit Provider Internal Medicine
DX: M25.551 Pain in right hip (principal); M25.552 Pain in left hip
CPT/HCPCS: 20610; 77002

== ENCOUNTER 2023-11-08 11:10 | Outpatient (AMB) | payer MEDICARE, MEDICAID, SELFPAY ==
--- NOTE | 2023-11-08 11:19 | A.OFFVIS_ITS ---
Intake Vital Signs 11/08/23 11:21 Height 5 ft 4 in BP 140/86 H Blood Pressure Location Lt brachial Position Sitting Respiration 12 Pulse 82 Pulse Source Pulse Oximeter Pulse Oximetry (%) 97 Oxygen Delivery Method Room Air Intake Visit Reasons: s/p right intraarticular hip inj Allergies tomato [Tomato] Allergy (Mild, Verified 11/08/23 11:22) HIVES vancomycin [Vancomycin] Allergy (Mild, Verified 11/08/23 11:22) TURNED RED/ITCHING Penicillins Adverse Reaction (Unknown, Verified 11/08/23 11:22) UNKNOWN Medication List - Last Reconciled 11/08/23 by Mery Quinonez LPN No Known Home Meds HPI s/p right intraarticular hip inj HPI Details 53-year-old male who presents today to t he office for a status post right intraarticular hip injection. The patient reports significant relief following the procedure for three days. There were no significant changes in his pain thereafter. He reports that his right hip pain is worse than the left side. He has a limited ROM. He usually li fts his leg to relieve the pain after standing for more than 10 minutes. He has also noticed popping sensations when lifting the leg above knee level. He reports stabbing pain and pressure in his inguinal region. He describes his pain as ?someone punching him in the testicles with brass knuckles with spikes. He still reports right-sided back pain. Past Procedures: 10/10/23: Hip Intra-articular Injection, fluoroscopy guided, Right: 90% relief for 3 days. 09/12/23: Lumbar Medial Branch Block, Bi lateral L3, L4 medial branches and L5 Dorsal Ramus (2 levels, 3 nerves): 40% relief for two days. [facility] Medical History Depression GERD (gastroesophageal reflux disease) History of bacterial enteritis Surgical History History of ankle surgery History of back surgery History of colonoscopy History of trauma Family History Father No problems noted. Mother Cancer Brother Bone cancer Social History Housing: Apartment Alcohol intake: former Patient Tobacco Use Status: Former Tobacco user Second Hand Smoke Exposure: Yes Substance Use Type: Marijuana service: No Current occupational status: disabled Cognitive needs: No Hearing needs: No Vision needs: Yes (reading glasses) Review of Systems Const All systems reviewed & are unremarkable except as noted in HPI and below Physical Exam Vital Signs: Last Vital Signs Pulse 82 11/08/23 11:21 Resp 12 11/08/23 11:21 BP 140/86 H 11/08/23 11:21 Pulse Ox 97 11/08/23 11:21 Oxygen Delivery Method Room Air 11/08/23 11:21 General: Appears afebrile. Alert and oriented. Mood and affect appropriate. Follows and participates in conversation appropriately. Respiratory effort is unlabored. Able to transition from sit to stand unassisted. Ambulates with bilaterally normal heel strike and toe off. 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 His hip x-ray is mostly unremarkable. We will follow up with [employer] to check on the status of his psychology clearance for consideration of a trial of cluneal nerves. Scribed for Dr. Iverson by Aristides López, medical apparatus model maker, on 11/08/2023. I, Dr. Iverson, have personally reviewed and agree with the information entered by the scribe. Orders: Orders MR hip RT wo con 11/08/23 M25.551 - Pain in right hip, M25.552 - Pain in left hip Coding Level of Care Code Est Pt Level 4 (81301) Diagnoses Bilateral hip pain M25.551; M25.552 Bertolotti's syndrome Q76.49 Intractable low back pain M54.59
[2023-11-08 11:21] VITALS: BP 140/86; PULSE 82; RESP 12; O2SAT 97
== END 2023-11-08 11:53 | disposition home or self-care (01) ==
PROVIDERS: PCP Internal Medicine; Visit Provider Internal Medicine
DX: M25.551 Pain in right hip (principal); M25.552 Pain in left hip; Q76.49 Other congenital malformations of spine, not associated with scoliosis; M54.59 Other low back pain
CPT/HCPCS: 99214

== ENCOUNTER → 2023-11-08 11:10 | Outpatient (BNVA) | payer MEDICARE, MEDICAID, SELFPAY | PROVIDERS: PCP Internal Medicine; Visit Provider Internal Medicine | DX: M25.551 Pain in right hip (principal); M25.552 Pain in left hip; M54.59 Other low back pain; Q76.49 Other congenital malformations of spine, not associated with scoliosis; Z98.890 Other specified postprocedural states | CPT/HCPCS: 99212 ==

== ENCOUNTER 2023-12-06 07:13 | Outpatient (REF) | payer MEDICARE, MEDICAID, SELFPAY ==
--- NOTE | ~2023-12-06 | MR_ITS ---
EXAMINATION: MR HIP WITHOUT CONTRAST, RIGHT CLINICAL INFORMATION: Right hip and groin pain. Worsening. Decreased range of motion. COMPARISON: Bilateral hip and pelvic radiographs dated 09/16/2023. TECHNIQUE: MRI of the right hip was obtained using routine sequences on a high-field strength magnet. FINDINGS: ACETABULAR LABRUM: Focal linear fluid signal within the undersurface of the anterosuperior labrum (sagittal image 05/15), likely indicating a nondisplaced undersurface tear. ARTICULAR CARTILAGE/BONE: Intact articular cartilage. No stress reaction, fracture, or avascular necrosis. No marrow edema or evidence of acute osseous injury. No concerning lytic or blastic osseous lesion. MUSCLES/TENDONS: Minimal gluteus medias and gluteus minimus tendinosis. No measurable tendon tear or tendon retraction. JOINT FLUID/BURSA: Within normal limits. INTRAPELVIC STRUCTURES: Unremarkable. MR/MR hip RT wo con IMPRESSION: 1. Probable nondisplaced undersurface tear of the anterosuperior labrum. 2. No stress reaction, fracture, or avascular necrosis. 3. Minimal gluteus medius and gluteus minimus tendinosis.
== END 2023-12-06 07:14 | disposition home or self-care (01) ==
LOC: HO.MRI 07:13
PROVIDERS: PCP Internal Medicine; Visit Provider Internal Medicine
DX: M25.551 Pain in right hip (principal)
CPT/HCPCS: 73721

== ENCOUNTER 2023-12-18 09:14 | Outpatient (AMB) | payer MEDICARE, MEDICAID, SELFPAY ==
--- NOTE | 2023-12-18 09:34 | A.OFFVIS_ITS ---
Vital Signs 12/18/23 09:36 Height 5 ft 4 in Weight 144 lb BMI 24.7 BP 141/92 H Blood Pressure Location Lt brachial Position Sitting Respiration 14 Pulse 73 Pulse Source Pulse Oximeter Pulse Oximetry (%) 97 Oxygen Delivery Method Room Air Intake Visit Reasons: MRI FOLLOW UP Allergies tomato [Tomato] Allergy (Mild, Verified 12/18/23 09:37) HIVES vancomycin [Vancomycin] Allergy (Mild, Verified 12/18/23 09:37) TURNED RED/ITCHING Penicillins Adverse Reaction (Unknown, Verified 12/18/23 09:37) UNKNOWN Medication List - Last Reconciled 12/18/23 by Mery Quinonez LPN No Known Home Meds HPI HPI MRI FOLLOW UP: Details: 53-year-old male presenting for follow-up regarding low back and hip pain. His hip pain is most bothersome at this time. He complains of sharp stabbing pain that is making it difficult to continue with his activities of daily living and impossible to work. He is extremely frustrated and is looking for long-term relief options sooner rather than later. 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 PENDING SALE TO [facility] Medical History Depression GERD (gastroesophageal reflux disease) History of bacterial enteritis Surgical History History of ankle surgery History of back surgery History of colonoscopy History of trauma Family History Father No problems noted. Mother Cancer Brother Bone cancer Social History Housing: Apartment Alcohol intake: former Patient Tobacco Use Status: Former Tobacco user Second Hand Smoke Exposure: Yes Substance Use Type: Marijuana service: No Current occupational status: disabled Cognitive needs: No Hearing needs: No Vision needs: Yes (reading glasses) Physical Exam Vital Signs: Last Vital Signs Pulse 73 12/18/23 09:36 Resp 14 12/18/23 09:36 BP 141/92 H 12/18/23 09:36 Pulse Ox 97 12/18/23 09:36 Oxygen Delivery Method Room Air 12/18/23 09:36 BMI result Body Mass Index 24.7 On exam today: Appears afebrile. Alert and oriented. Mood and affect appropriate. Follows and participates in conversation appropriately. Respiratory effort is unlabored. Able to transition from sit to stand unassisted. Ambulates with bilaterally normal heel strike and toe off. Able to stand and walk on toes and heels. Results Reviewed Results Reviewed: EXAMINATION: MR HIP WITHOUT CONTRAST, RIGHT CLINICAL INFORMATION: Right hip and groin pain. Worsening. Decreased range of motion. COMPARISON: Bilateral hip and pelvic radiographs dated 09/16/2023. TECHNIQUE: MRI of the right hip was obtained using routine sequences on a high-field strength magnet. FINDINGS: ACETABULAR LABRUM: Focal linear fluid signal within the undersurface of the anterosuperior labrum (sagittal image 05/15), likely indicating a nondisplaced undersurface tear. ARTICULAR CARTILAGE/BONE: Intact articular cartilage. No stress reaction, fracture, or avascular necrosis. No marrow edema or evidence of acute osseous injury. No concerning lytic or blastic osseous lesion. MUSCLES/TENDONS: Minimal gluteus medias and gluteus minimus tendinosis. No measurable tendon tear or tendon retraction. JOINT FLUID/BURSA: Within normal limits. INTRAPELVIC STRUCTURES: Unremarkable. MR/MR hip RT wo con IMPRESSION: 1. Probable nondisplaced undersurface tear of the anterosuperior labrum. 2. No stress reaction, fracture, or avascular necrosis. 3. Minimal gluteus medius and gluteus minimus tendinosis. 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 For his right hip labral tear, I will reach out to orthopedics and have them review the MRI to see if he hip arthroscopy would be feasible. He does not have significant arthritis making THR a less likely option, but we will discuss that as well. Once I hear back I will reach out to the patient and inform him of the outcome of our discussion. Coding Level of Care Code Est Pt Level 3 (18679) Diagnoses Intractable low back pain M54.59 Labral tear of right hip joint S73.191A
[2023-12-18 09:36] VITALS: BP 141/92; PULSE 73; RESP 14; O2SAT 97; BMI 24.7
== END 2023-12-18 10:29 | disposition home or self-care (01) ==
PROVIDERS: PCP Internal Medicine; Visit Provider Internal Medicine
DX: M54.59 Other low back pain (principal); S73.191A Other sprain of right hip, initial encounter
CPT/HCPCS: 99213

== ENCOUNTER → 2023-12-18 09:14 | Outpatient (BNVA) | payer MEDICARE, MEDICAID, SELFPAY | PROVIDERS: PCP Internal Medicine; Visit Provider Internal Medicine | DX: S73.191D Other sprain of right hip, subsequent encounter (principal); M54.59 Other low back pain | CPT/HCPCS: 99212 ==

== ENCOUNTER → 2024-01-15 09:10 | Outpatient (BNV) | payer MEDICARE, MEDICAID, SELFPAY | PROVIDERS: PCP Internal Medicine; Visit Provider Internal Medicine | DX: M54.59 Other low back pain (principal) | CPT/HCPCS: 64555 ==

== ENCOUNTER → 2024-01-15 09:10 | Day surgery (SDC) | payer MEDICARE, MEDICAID, SELFPAY ==
--- NOTE | 2024-01-14 09:18 | HO.ANESPROP2 ---
Documented by User: Arabella Salinas NP 01/14/24 09:18 HPI - Anesthesia Eval Consult details Narrative: 54yo M for Left Cluneal Nerve Stimulator Trial PMFSH Active Problems Active Problems: All Active Problems Labral tear of right hip joint (Acute) Intractable low back pain (Acute) Bilateral hip pain (Acute) Lumbar spondylosis (Acute) Lumbar radiculopathy (Acute) Bertolotti's syndrome (Acute) Right shoulder pain (Acute) Lumbar degenerative disc disease (Acute) Back pain (Acute) Headache (Acute) Past Medical History Medical History History of bacterial enteritis Depression GERD (gastroesophageal reflux disease) Family History Family History Father No problems noted. Mother Cancer Brother Bone cancer Surgical History Surgical History History of colonoscopy History of ankle surgery History of back surgery History of trauma Social History Social History Housing: Apartment Alcohol intake: former Patient Tobacco Use Status: Former Tobacco user Quit Date: 15 years Second Hand Smoke Exposure: Yes Substance Use Type: Marijuana service: No Current occupational status: disabled Cognitive needs: No Hearing needs: No Vision needs: Yes (reading glasses) Meds Allergies Allergy/AdvReac Type Severity Reaction Status Date / Time tomato [Tomato] Allergy Mild HIVES Verified 12/18/23 09:37 vancomycin [Vancomycin] Allergy Mild TURNED Verified 12/18/23 09:37 RED/ITCHING Penicillins AdvReac Unknown UNKNOWN Verified 12/18/23 09:37 Home Medications ?Medication ?Instructions ?Recorded ?Confirmed ?Last Taken ?Type No Known Home Meds 10/10/23 12/18/23 Unknown History Assessment and Plan Assessment Anesthesia Assessment: Chart Reviewed Documented by User: Lilibeth Quiroz MD 01/15/24 12:53 [facility] Past Medical History Medical History History of bacterial enteritis Depression GERD (gastroesophageal reflux disease) Family History Family History Father No problems noted. Mother Cancer Brother Bone cancer Family history of problems with anesthesia: No Surgical History Surgical History History of colonoscopy History of ankle surgery History of back surgery History of trauma History of Problems with Anesthesia: No Social History Social History Housing: Apartment Alcohol intake: former Patient Tobacco Use Status: Former Tobacco user Quit Date: 15 years Second Hand Smoke Exposure: Yes Substance Use Type: Marijuana service: No Current occupational status: disabled Cognitive needs: No Hearing needs: No Vision needs: Yes (reading glasses) Meds Allergies Allergy/AdvReac Type Severity Reaction Status Date / Time tomato [Tomato] Allergy Mild HIVES Verified 12/18/23 09:37 vancomycin [Vancomycin] Allergy Mild TURNED Verified 12/18/23 09:37 RED/ITCHING Penicillins AdvReac Unknown UNKNOWN Verified 12/18/23 09:37 Home Medications ?Medication ?Instructions ?Recorded ?Confirmed ?Last Taken ?Type No Known Home Meds 10/10/23 12/18/23 Unknown History Exam Height,Weight and Vital Signs: Height 5 ft 3 in Weight 64.864 kg Vital Signs Temp Pulse Resp BP Pulse Ox O2 Del Method 01/15/24 10:16 98.3 F 64 18 125/71 98 Room Air Pertinent Lab Results Pertinent Lab Results: Lab Results 01/15/24 Range/Units Unknown Nasal Screen MRSA (PCR) NEGATIVE (Negative) Nasal S. aureus Screen NEGATIVE (Negative) Nasal MRSA/S.aureus Interp SEE NOTE Airway Mallampati Class: III TM Dist: >3cm Neck ROM: Limited (Neck surgery but adequate extension ) Loose/Missing/Broken Teeth: No (Dental implants intact. Denies broken or loose teeth) Heart: RRR Lungs: CTAB Assessment and Plan Assessment Anesthesia Assessment: Anesthesia Plan Discussed and Chart Reviewed Final Anesthetic Review Family History of Problems with Anesthesia: No History of Problems with Anesthesia: No NPO: Yes ASA Class: II Final Preanesthetic Review: No Changes in Pt Med Stat, Meds/Allgs Chart Reviewed, Consent Obtained/Reviewed and Anes Risks/Benef Reviewed Patient Risk: Intermediate Procedure Risk: Low Assessment/Block/Sedation in SS: Assess/Block/Sedation-SS Anesthetic Plan Anesthetic Plan: MAC: Disposition: Standard PACU
--- NOTE | ~2024-01-15 | FL_ITS ---
EXAMINATION: XR FLUOROSCOPY WITH IMAGES CLINICAL INFORMATION: Cluneal nerve stim trial left. COMPARISON: None available. TECHNIQUE: Fluoroscopy Supervised By: Dr. Sukhdev Iverson. Fluoroscopy Time: 22.8 seconds. Cumulative Dose: 5.1575 mGy. DAP: 1.5289 Gycm2. Images: 2. FINDINGS: Intraoperative fluoroscopy and spot films were performed during a procedure in the OR. A stimulation wire is seen overlying the left lateral lumbosacral region. Please see Dr. Sukhdev Iverson's report for complete details. FL/FL guidance in OR IMPRESSION: Intraoperative fluoroscopy and spot films were obtained. Please see Dr. Sukhdev Iverson's report for complete details.
[2024-01-15 10:16] VITALS: BP 125/71; PULSE 64; RESP 18; TEMP 36.8; O2SAT 98; BMI 25.3
[2024-01-15 10:30] VITALS: BMI 25.3
[2024-01-15] MEDS: Lactated Ringers 1,000 ML 100 ML IVCONT (10:35)
--- NOTE | 2024-01-15 11:31 | MHC.SHP ---
Pre-Procedural Eval Section A - 24 Hr Update-Section A only Date of Service: 01/15/24 The patient is an INPATIENT: No Changes since office visit: Yes Cold of Flu in the past 2 weeks and Yes Patient answered all questions The patient has been examined within 24 hours of the surgical procedure. The History & Physical has been completed within 30 days and I have reviewed it.: No Section B - Complete if H&P > 30 days Chief Complaint: Intractable low back pain, cluneal neuropathy Relevant Family History (Specify if Yes): No Relevant Social History: None Present Medications: see Short Stay Collaborative assessment Medical History: No relevant PMH History of Previous Operations: No relevant previous surgery Allergies: Allergies Allergy/AdvReac Type Severity Reaction Status Date / Time tomato [Tomato] Allergy Mild HIVES Verified 12/18/23 09:37 vancomycin [Vancomycin] Allergy Mild TURNED Verified 12/18/23 09:37 RED/ITCHING Penicillins AdvReac Unknown UNKNOWN Verified 12/18/23 09:37 Review of Systems Sugical H&P ROS: Negative: Constitution, Cardiovascular and Respiratory Exam Surgical H&P Exam: Normal: HEENT, Normal: Heart and Normal: Skin Plan Diagnosis/Plan: Unchanged I have reviewed the history and physical and performed a pertinent physical examination on my patient. No changes have occurred unless specified. Time Spent With Patient Time: Total time managing care of this patient today ____ minutes.
--- NOTE | 2024-01-15 11:32 | P.OP_ITS ---
Operative Note Operative Note Date of Service: 01/15/24 Narrative: Percutaneous Trial of Stimulation of Medial Cluneal Nerves, Left After obtaining written consent, pre-procedure blood pressure and heart rate were stable and recorded in the nursing record. A peripheral IV was started. Antibiotics, clindamycin 900 mg, were given prior to the start of the procedure. The patient was positioned in prone position. The lumbosacral area was widely prepped with chloraprep and draped in sterile fashion. Using fluoroscopy, the needle entry location was estimated in the lumbar area. The skin at the insertion site was anesthetized with 1% lidocaine mixed with 0.25% bupivacaine w ith 1:[id number] epinephrine. A 14 gauge bent coude needle was used as an introducer. The introducer was advanced subcutaneously along the length of the lumbar paraspinal muscles until contact was established with the sacrum on the left side. The introducer was then rotated and walked off the edge of the sacrum overlying the medial cluneal nerves. The stylet was removed. The electrode array was passed through the introducer using a tenting approach at a shallow angle. Fluoroscopy was used to confirm appropriate lead position in the AP and lateral images. Stimulation was performed and good coverage was obtained. The lead was secured using steri-strips and tegaderms. The patient tolerated the procedure well. No complications were encountered. Following the procedure the patient's vital signs were stable. The patient was discharged home in good condition with post-procedural instructions. Time Out: Immediately prior to the procedure, the following was verbally confirmed that there is a signed consent form and that the correct patient, planned procedure, site and side are consistent with documentation and that necessary equipment and/or blood products are available prior to the start of the case. Complications: none EBL: <5 cc
--- NOTE | 2024-01-15 11:32 | PM.OP ---
Brief Operative Note Date of Service: 01/15/24 Pre-op diagnosis: Medial cluneal neuropathy, intractable low back pain Post-op diagnosis: same Procedure: Medial cluneal nerve stimulator trial Implants: Curonix PNS trial lead Surgeon: Sukhdev Iverson MD Anesthesia: MAC Was an Machine Lead Burner used for this Procedure?: No Estimated blood loss (mL): 2 Pathology: none sent Condition: stable Disposition: PACU
[2024-01-15 11:56] LABS: MRSA Nasal PCR NEGATIVE (Negative); SA Nasal PCR NEGATIVE (Negative)
[2024-01-15 12:56] VITALS: BP 127/81; PULSE 61; RESP 21; TEMP 36.4; O2SAT 97
[2024-01-15 13:01] VITALS: BP 118/83; PULSE 62; RESP 18; O2SAT 98
[2024-01-15 13:06] VITALS: BP 106/76; PULSE 60; RESP 16; O2SAT 98
[2024-01-15 13:11] VITALS: BP 142/86; PULSE 68; RESP 14; O2SAT 97
[2024-01-15 13:26] VITALS: BP 135/80; PULSE 65; RESP 15; TEMP 36.1; O2SAT 98
== END | disposition home or self-care (01) ==
PROVIDERS: Registered Nurse Emergency; PCP Internal Medicine; Visit Provider Internal Medicine
PROC: (CPT 64555; principal; 2024-01-15 11:30)
DX: M54.59 Other low back pain (principal); S73.191A Other sprain of right hip, initial encounter; X58.XXXA Exposure to other specified factors, initial encounter; M25.551 Pain in right hip; K21.9 Gastro-esophageal reflux disease without esophagitis; Z87.891 Personal history of nicotine dependence
CPT/HCPCS: 64555; 87640; 87641; C1897; J0736; J1596; J2250; J2704; J3010

== ENCOUNTER 2024-01-22 15:01 | Outpatient (AMB) | payer MEDICARE, MEDICAID, SELFPAY ==
--- NOTE | 2024-01-22 15:05 | MHC.OFFVIS ---
Vital Signs 01/22/24 15:06 Height 5 ft 3 in Weight 143 lb BMI 25.3 BP 121/77 Blood Pressure Location Lt brachial Position Sitting Respiration 14 Pulse 77 Pulse Source Pulse Oximeter Pulse Oximetry (%) 95 Oxygen Delivery Method Room Air Intake Visit Reasons: S/p Curonix PNS Trial 01/15/24 Allergies tomato [Tomato] Allergy (Mild, Verified 01/22/24 15:08) HIVES vancomycin [Vancomycin] Allergy (Mild, Verified 01/22/24 15:08) TURNED RED/ITCHING Penicillins Adverse Reaction (Unknown, Verified 01/22/24 15:08) UNKNOWN Medication List - Last Reconciled 01/22/24 by Mery Quinonez LPN No Known Home Meds HPI HPI S/p Curonix PNS Trial 01/15/24: Details: 54-year-old male who presents to the office for status post Curonix PNS trial 01/15/24 The patient reports 80% relief following the procedure. He does note some tenderness at the lead insertion site, which is exquisitely painful. Overall, he wants to proceed with the implant. He has been utilizing medicinal marijuana to ease his hip discomfort. He denies any relapse of alcohol use. [facility] [place] Medical History History of bacterial enteritis Depression GERD (gastroesophageal reflux disease) Surgical History History of colonoscopy History of ankle surgery History of back surgery History of trauma Family History Father No problems noted. Mother Cancer Brother Bone cancer Social History Housing: Apartment Alcohol intake: former Patient Tobacco Use Status: Former Tobacco user Second Hand Smoke Exposure: Yes Substance Use Type: Marijuana service: No Current occupational status: disabled Cognitive needs: No Hearing needs: No Vision needs: Yes (reading glasses) Review of Systems Const All systems reviewed & are unremarkable except as noted in HPI and below Physical Exam Vital Signs: Last Vital Signs Pulse 77 01/22/24 15:06 Resp 14 01/22/24 15:06 BP 121/77 01/22/24 15:06 Pulse Ox 95 01/22/24 15:06 Oxygen Delivery Method Room Air 01/22/24 15:06 BMI result Body Mass Index 25.3 General: Appears afebrile. Alert and oriented. Mood and affect appropriate. Follows and participates in conversation appropriately. Respiratory effort is unlabored. Able to transition from sit to stand unassisted. There is a small 1 x 2cm fluctuant palpable mass at the lead insertion site with pus oozing through the lead insertion puncture, it is exquisitely tender to palpation. No tenderness overlying the sacrum, some tenderness along the needle tract. Results Reviewed Results Reviewed: 12/06/23: MR HIP WITHOUT CONTRAST, RIGHT FINDINGS: ACETABULAR LABRUM: Focal linear fluid signal within the undersurface of the anterosuperior labrum (sagittal image 05/15), likely indicating a nondisplaced undersurface tear. ARTICULAR CARTILAGE/BONE: Intact articular cartilage. No stress reaction, fracture, or avascular necrosis. No marrow edema or evidence of acute osseous injury. No concerning lytic or blastic osseous lesion. MUSCLES/TENDONS: Minimal gluteus medias and gluteus minimus tendinosis. No measurable tendon tear or tendon retraction. JOINT FLUID/BURSA: Within normal limits. INTRAPELVIC STRUCTURES: Unremarkable. IMPRESSION: 1. Probable nondisplaced undersurface tear of the anterosuperior labrum. 2. No stress reaction, fracture, or avascular necrosis. 3. Minimal gluteus medius and gluteus minimus tendinosis. 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 I provided the patient with dressing supplies and educated him about how to dress the area and maintaining it. Per his request, we will fax our note for his hip injection to his orthopedic doctor. With respect to cluneal nerve stimulation, he is interested in proceeding with the implant given the excellent pain relief that he got. We will schedule him for the implant procedure the next available date. Scribed for Dr. Iverson by Ayaan Bautista, registered medical transcriptionist, on 01/22/2024. I, Dr. Iverson, have personally reviewed and agree with the information entered by the scribe. Medications: New cephalexin 500 mg PO QID 40 caps 0RF Coding Level of Care Code Est Pt Level 4 (04066) Diagnoses Bertolotti's syndrome Q76.49 Intractable low back pain M54.59 Cluneal neuropathy G58.8
[2024-01-22 15:06] VITALS: BP 121/77; PULSE 77; RESP 14; O2SAT 95; BMI 25.3
== END 2024-01-22 15:38 | disposition home or self-care (01) ==
PROVIDERS: PCP Internal Medicine; Visit Provider Internal Medicine
DX: Q76.49 Other congenital malformations of spine, not associated with scoliosis (principal); M54.59 Other low back pain; G58.8 Other specified mononeuropathies
CPT/HCPCS: 99024

== ENCOUNTER → 2024-01-22 15:01 | Outpatient (BNVA) | payer MEDICARE, MEDICAID, SELFPAY | PROVIDERS: PCP Internal Medicine; Visit Provider Internal Medicine | DX: Q76.49 Other congenital malformations of spine, not associated with scoliosis (principal); M54.59 Other low back pain; G58.8 Other specified mononeuropathies | CPT/HCPCS: 99212 ==